=== PATIENT | female | born 1970 | race Caucasian/White ===

== ENCOUNTER 2019-05-10 13:56 | Emergency (ER) | payer OTHER ==
[~2019-05-10] VITALS: Ht 172.7 cm; Wt 66.7 kg
[2019-05-10] MEDS ORDERED: OMEP20ER PO (15:30)
[2019-05-10] MEDS ORDERED: HYDR1TAB94 PO (15:50)
== END 2019-05-10 16:09 | disposition home or self-care (01) ==
LOC: ER 13:56
DX: S93.401A Sprain of unspecified ligament of right ankle, initial encounter (principal); F17.200 Nicotine dependence, unspecified, uncomplicated; Z88.5 Allergy status to narcotic agent; Z88.0 Allergy status to penicillin; X50.0XXA Overexertion from strenuous movement or load, initial encounter; Y99.0 Civilian activity done for income or pay
CPT/HCPCS: 29515; 73610; 99283-25